=== PATIENT | female | born 1990 | race Caucasian/White ===

== ENCOUNTER → 2017-01-28 | Outpatient (REF) | LOC: M LAB REF 10:59 | PROVIDERS: ATTEND Obstetrics & Gynecology Reproductive Endocrinology | DX: Z01.89 Encounter for other specified special examinations (principal) ==

== ENCOUNTER → 2017-02-02 | Outpatient (REF) | LOC: M LAB REF 11:54 | PROVIDERS: ATTEND Obstetrics & Gynecology Reproductive Endocrinology | DX: Z13.9 Encounter for screening, unspecified (principal) ==